=== PATIENT | male | born 2000 | race African-American/Black ===

== ENCOUNTER 2021-06-26 05:59 | Emergency (ER) | payer OTHER ==
[~2021-06-26] VITALS: Ht 167.7 cm; Wt 66.2 kg
[2021-06-26 06:04] VITALS: BP 141/43
--- NOTE | 2021-06-26 06:17 | ED Chest Pain ---
General Chief Complaint: Chest Pain Stated Complaint: CHEST PAIN Source: patient Exam Limitations: no limitations History of Present Illness Date Seen by Provider: Jun 26, 2021 Time Seen by Provider: 06:00 Initial Comments Patient is a 21-year-old -[place] male who presents with substernal chest burning. Symptoms began 3 days ago while running or practices in the cold weather. 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 He is continue to train her practice throughout his symptom course. Reports nonproductive cough, nasal congestion and hoarseness. Symptoms are worse with deep breathing.. Denies fever chills, nausea vomiting or sweats. Denies dizziness lightheadedness palpitations, abdominal pain. Leg pain or swelling. No other acute symptoms or complaints. Timing/Duration: 2-3 days Severity/Quality: mild, other (Burning) Location: other Radiation: other Prior CP/Workup: other Modifying Factors: improves with other Allergies and Home Medications Allergies Coded Allergies: No Known Drug Allergies (Unverified , 06/26/21) Patient Home Medication List Home Medication List Reviewed: Yes Review of Systems Review of Systems Constitutional: see HPI EENTM: See HPI Respiratory: See HPI Cardiovascular: See HPI Gastrointestinal: See HPI Genitourinary: See HPI Musculoskeletal: see HPI Skin: see HPI Psychiatric/Neurological: See HPI Endocrine: See HPI Hematologic/Lymphatic: See HPI All Other Systems Reviewed Negative Unless Noted: Yes Past Tvtkjkp-Aksthe-Bnsijg Hx Patient Social History Tobacco Use?: No Physical Exam Vital Signs Capillary Refill : Height, Weight, BMI Height: '" Weight: lbs. oz. kg; BMI Method: General Appearance: No Apparent Distress, Anxious HEENT: PERRL/EOMI, Normal ENT Inspection, Pharynx Normal Neck: Full Range of Motion, Non Tender, Supple Respiratory: Lungs Clear, Normal Breath Sounds Cardiovascular: Regular Rate, Rhythm, No Edema Gastrointestinal: Non Tender, Soft Extremity: No Calf Tenderness Neurologic/Psychiatric: Alert, Oriented x3 Focused Exam Sepsis Stage: Ruled Out Progress/Results/Core Measures Results/Orders My Orders Orders - FANNY VINCENT DO Ekg Tracing (06/26/21 06:10) Chest 1 View Ap/Pa Only (06/26/21 06:10) Departure Communication (Admissions) Chest x-ray: No acute cardiopulmonary disease on preliminary ED review. EKG: Sinus bradycardia with early repolarization. Possible left ventricular hypertrophy or related to thin chest wall. Patient with acute bronchitis with persistent symptoms likely due to exercise. Recommendations are rest supportive care with PCP follow-up. Impression Primary Impression: Chest wall pain Additional Impression: Acute bronchitis Disposition: 01 HOME, SELF-CARE Condition: Stable Departure-Patient Inst. Decision time for Depature: 06:17 Referrals: NO,LOCAL PHYSICIAN (PCP/Family) Primary Care Physician Patient Instructions: Chest Pain (DC), Bronchitis, Adult ED Add. Discharge Instructions: Your evaluated in the emergency department for chest wall burning. Your symptoms are consistent with bronchitis. Please take 400 mg of ibuprofen 3 times daily and avoid exercise for the next 3 days or until symptoms improve. Take Mucinex as directed. Follow-up with local primary care doctor in 5 days if symptoms persist. Return to the ED if new or worsening symptoms. All discharge instructions reviewed with patient and/or family. Voiced understanding. Scripts Guaifenesin (Mucinex) 1,200 Mg Tab.er.12h 1200 MG PO Q12H, #20 TAB Prov: FANNY VINCENT DO 06/26/21 FANNY VINCENT DO Jun 26, 2021 06:17
[2021-06-26] MEDS ORDERED: GUAI120013 PO (06:18)
--- NOTE | 2021-06-26 06:46 | Diagnostic Imaging Report ---
INDICATION: Chest pain. No prior exam is available for comparison. FINDINGS: The heart size, mediastinal configuration, and pulmonary vascularity are within normal limits. There is no pleural effusion, pneumothorax, or pneumonia. The osseous structures are unremarkable. IMPRESSION: No acute cardiopulmonary abnormality. Dictated by: Dictated on workstation # [id number]
== END 2021-06-26 06:22 | disposition home or self-care (01) ==
LOC: ER FS 06:02
DX: R07.89 Other chest pain (principal); J20.9 Acute bronchitis, unspecified
CPT/HCPCS: 71045; 93005